=== PATIENT | male | born 1970 | race Caucasian/White ===

== ENCOUNTER 2019-02-14 22:54 | Emergency (ER) | payer BC ==
[~2019-02-14] VITALS: Ht 177.8 cm; Wt 77.6 kg
--- NOTE | 2019-02-14 23:07 | NUR ---
PT PLACED IN C COLLAR IN TRIAGE. STRAIGHT BACK TO ROOM VIA WHEELCHAIR. CHART HANDED TO .
--- NOTE | 2019-02-14 23:09 | NUR ---
ERP AT BEDSIDE TO EVAL.
--- NOTE | 2019-02-14 23:28 | NUR ---
IV placed. patient taken to CT scan.
[2019-02-14] MEDS ORDERED: ONDANSETRON 2MG/ML, 2ML IVPush ONE (23:30)
[2019-02-14] MEDS ORDERED: HYDROmorphone 1 MG/ML, 1ML INJ IVPush PRN (23:30)
[2019-02-14] MEDS ORDERED: ONDANSETRON 2MG/ML, 2ML ONE (23:50)
[2019-02-14] MEDS ORDERED: HYDROmorphone 2 MG/ML, 1ML ONE (23:51)
--- NOTE | 2019-02-14 23:57 | NUR ---
back from CT scan. awaiting result. medicated for pain.
[2019-02-15 00:42] VITALS: BP 127/78
== END 2019-02-15 00:46 | disposition short-term general hospital (02) ==
LOC: ED 23:53
DX: S42.002A Fracture of unspecified part of left clavicle, initial encounter for closed fracture (principal); S42.102A Fracture of unspecified part of scapula, left shoulder, initial encounter for closed fracture; S22.32XA Fracture of one rib, left side, initial encounter for closed fracture; S27.321A Contusion of lung, unilateral, initial encounter; F17.200 Nicotine dependence, unspecified, uncomplicated; V86.56XA Driver of dirt bike or motor/cross bike injured in nontraffic accident, initial encounter; Y93.55 Activity, bike riding; Y92.89 Other specified places as the place of occurrence of the external cause; Y99.8 Other external cause status
CPT/HCPCS: 71045; 71250; 72125; 96374; 96375; 99291; J1170; J2405